=== PATIENT | female | born 1965 | race Two or more races ===

== ENCOUNTER 2024-02-17 09:48 | Outpatient (AMB) | payer MEDICAID, SELFPAY ==
[2024-02-17 10:00] VITALS: BP 184/94; PULSE 81; RESP 18; TEMP 36.3; O2SAT 98; BMI 36.1
--- NOTE | 2024-02-17 10:00 | PD.ORTHCLVIS ---
Vital signs 02/17/24 10:00 Height 1.63 m Height Method Stated Weight 95.424 kg Weight Measurement Method Standing Scale BMI 36.1 BP 184/94 H Blood Pressure Source Automatic Cuff Blood Pressure Location Right Upper Arm Position Sitting Respiration 18 Pulse 81 Pulse Source Monitor Temp 97.3 F Temp Source Temporal Artery Scan Pulse Oximetry (%) 98 Oxygen Delivery Method Room Air Med/Allergies Allergies & Medications Allergies No Known Drug Allergies Allergy (Verified 02/17/24 10:02) Medication Reconciliation No Known Home Medications 02/17/24 [History Confirmed 02/17/24] Subjective Visit Visit for: new patient and knee Immunization / Flu Flu Vaccine in the Last 12 Months: No Flu Vaccine Exclusion Criteria: No Exclusion Criteria History of Present Illness Chief complaint: LEFT KNEE PAIN Date of injury / onset of symptoms: YEARS & YEARS Norma is a 58-year-old female with 4 years of left knee pain. She also has right knee pain. She has had over 6 injections in the past. She has tried anti-inflammatories as well as physical therapy. 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 Exam Exam Patient is in no acute distress and is cooperative with the examination today. Breathing is nonlabored. Patient has a normal mood and affect. Bilateral extremities were evaluated and demonstrates sensation intact to light touch. Palpable pedal pulses are present. No significant edema is present. Bilateral hips were examined. The patient has no pain with log roll of the hips. Internal rotation to 30 degrees and external rotation to 30 degrees is painless. Negative FADIR. Right knee was examined today. The right knee is in reasonable alignment. Range of motion from 0-120 degrees. Knee is stable to varus and valgus as well as AP translation with <5mm. Patient has a negative McMurrays. There is no pain with patellofemoral compression and no crepitus noted. The knee is nontender to palpation. Left knee was examined today. The left knee is in [varus] alignment. Range of motion from [0-115] degrees. Knee is stable to varus and valgus as well as AP translation with <5mm. Patient has a [negative] McMurrays. There is [no] pain with patellofemoral compression and [no] crepitus noted. The knee is [tender] to palpation [medially]. Assessment and Plan Problem List (1) Arthritis of left knee: Status: Acute Plan: Patient is a 58-year-old female with left knee pain and left knee arthritis. She has had multiple injections in the past. She has a degenerative meniscal tear. We discussed that this is typically treated nonoperatively. She does have at least moderate arthritis. We are ordering standing x-rays to better evaluate this. We will do a phone visit to go over the results Office Procedures GNS Level of Care Nursing/Assessment Patient Status: Initial/New Patient Nursing Assessment/Reassesment: Medication Reconciliation, Update PMH in EMR and Vital Signs Coordination of Care: Complex Care and Chronic Disease 1-5, Education Complex Pt/Fam, Consent,records obtained, informed consent, Results/Orders obtained and Staff clarify orders New Patient Charge New Patient Point Assignment: 1094 New Patient Point Charge: VESSEL OPERATOR Level 3 (2165-1921) Past Medical History Past Medical History Have you ever been diagnosed with any of the following: Cardiology Problems Hypertension: Yes Respiratory Problems Smoking: No Smoking Exposure: No
== END 2024-02-17 10:33 | disposition home or self-care (01) ==
PROVIDERS: PCP Family Medicine; Referring Provider Family Medicine; Supervising Provider Orthopaedic Surgery Adult Reconstructive Orthopaedic Surgery; Visit Provider Orthopaedic Surgery Adult Reconstructive Orthopaedic Surgery
DX: M17.12 Unilateral primary osteoarthritis, left knee (principal); M25.562 Pain in left knee; I10 Essential (primary) hypertension
CPT/HCPCS: 99203; G0463

== ENCOUNTER 2024-03-03 15:32 | Outpatient (AMB) | payer MEDICAID, SELFPAY ==
--- NOTE | 2024-03-03 15:30 | ORTHONT_ITS ---
Med/Allergies Allergies & Medications Allergies No Known Drug Allergies Allergy (Verified 03/03/24 15:30) Medication Reconciliation No Known Home Medications 02/17/24 [History Confirmed 03/03/24] Subjective Visit Visit for: knee (BILATERAL KNEE PAIN) Immunization / Flu Flu Vaccine in the Last 12 Months: No Flu Vaccine Exclusion Criteria: No Exclusion Criteria History of Present Illness Chief complaint: LEFT KNEE PAIN Date of injury / onset of symptoms: YEARS & YEARS Norma is a 58-year-old female with 4 years of left knee pain. She also has right knee pain. She has had over 6 injections in the past. She has tried anti-inflammatories as well as physical therapy. She reports the pain is affecting her quality life and happiness. She has a family history of knee issues Personal History Occupation: REGULATORY SPECIALIST Red flag PMH: none Pain Pain level (0-10): 10 Pain duration: CONSTANT Pain location: inside (medial), outside (lateral) and anterior Pain quality: sharp, dull and aching Pain timing: night and increases with activity Associated signs & symptoms: weakness Ambulatory data Ambulatory device: none Treatments Number of previous injections: 3 Improvement with previous injections: No Number of Physical Therapy sessions: 5 Improvement with PT: No Improvement with NSAIDS: no Review of Systems Review of Systems: All systems negative unless otherwise noted in HPI. Assessment and Plan Problem List (1) Arthritis of left knee: Status: Acute Plan: Patient is a 58-year-old female with left knee pain and left knee arthritis. X- rays of the bilateral knees were reviewed by me today from [place] [facility]. This demonstrates a left greater than right knee arthritis. Is complete obliteration of the medial joint space and osteophytes. She has failed conservative treatment and we thus discussed total knee replacement as a reasonable option. The left knee pain is significantly worse than the right And we will thus start on his side. We discussed weight loss and she has made a good attempt to lose weight. She will need medical clearance The nature and purpose of the total knee replacement, alternative method(s) of treatment, the material risks involved, and the possibility of complications were fully explained to the patient. The patient does NOT have any of the following contraindications to TKA: - Active infection of the knee joint, OR - Active systemic bacteremia, OR - Active skin infection or open wound at surgical site, OR - Neuropathic arthritis, OR - Severe, rapidly progressive neurological disease, OR - Severe medical condition that makes risks of surgery outweigh the potential benefit The patient was told the most common risks and complications associated with a total knee replacement include, but are not limited to: blood clots in the leg, fatal pulmonary embolism, dislocation of the prosthesis, intraoperative and postoperative fractures of the femur or tibia, infection, failure of the prosthesis or grafting materials, complications from anesthesia, reactions to blood transfusions, postoperative leg length inequality, instability of the knee replacement, nerve damage or injury, vascular injury, delayed wound healing, infection, other injury or even . In addition, there are risks associated with anesthesia given during this operation. Also, the patient was told that after undergoing a total knee replacement there may still be persistent pain or disability. The patient was informed that the success of this operation in part depends upon the mechanical devices which are going to be implanted and that these devices can fail or malfunction, and may need to be repaired or replaced and there are no guarantees as to the longevity of this device or its parts and that it or its parts could fail prematurely. The patient was also notified that during the course of surgery, there may be a need to use bone graft from donors, and that any bone graft used will be carefully screened for communicable diseases, including AIDS, hepatitis, Salty-Creutzfeldt, or other diseases, but despite the screening procedures, there is a small chance that they could contract one of these diseases. Finally, the patient was asked to follow completely and fully with all advice and recommended treatments, and that recovery and ultimate outcome are affected by their compliance with recommended treatment. We discussed the risks, benefits and treatment alternatives, and the patient is interested in proceeding with surgery. We will try to set this up as expeditiously as possible. Office Procedures GNS Level of Care Nursing/Assessment Patient Status: Established Patient Nursing Assessment/Reassesment: Medication Reconciliation, Update PMH in EMR and Vital Signs Coordination of Care: Complex Care and Chronic Disease 1-5, Education Complex Pt/Fam, Consent,records obtained, informed consent, 1 Ins Authorization, Lab and Imaging orders, Results/Orders obtained and Staff clarify orders Established Patient Charge Established Patient Point Assignment: 125 Telehealth Telemed Phone/Video with patient at home & Dr,PA,NANNY/HOUSEHOLD MANAGER: Yes
== END 2024-03-03 15:43 | disposition home or self-care (01) ==
LOC: HODSRG 15:32
PROVIDERS: PCP Family Medicine; Referring Provider Family Medicine; Supervising Provider Orthopaedic Surgery Adult Reconstructive Orthopaedic Surgery; Visit Provider Orthopaedic Surgery Adult Reconstructive Orthopaedic Surgery
DX: M17.12 Unilateral primary osteoarthritis, left knee (principal); M25.562 Pain in left knee
CPT/HCPCS: 99212; G0463

== ENCOUNTER → 2024-04-24 | Outpatient (CLI) | payer MEDICAID, SELFPAY ==
--- NOTE | 2024-04-24 15:00 | XR_ITS ---
Examination: CT left lower extremity, without contrast. 2-D sagittal reconstructions. 2-D coronal reconstructions. 3-D reconstructions. Date and time of exam:April 24, 2024 1528 hours INDICATIONS: Left knee primary osteoarthritis left knee pain 2 years CTDI: vol (mGy):12.5 DLP: (mGycm):941 Technique: Multiple 1.25 mm axial sections of the left lower extremity without intravenous contrast have been obtained. 2-D sagittal and coronal reconstructions have been obtained. 3-D reconstructions have been obtained. Low dose protocols were performed. One or more of the following dose reduction techniques were used; automated exposure control, adjustment of the mA and/or KV according to patient size, use of iterative reconstruction technique. Findings: Moderate osteopenia Mild narrowing left hip joint, no left hip fracture or avascular necrosis Advanced narrowing medial joint space left knee Moderate narrowing lateral patellofemoral joint No fracture No dislocation No avascular necrosis IMPRESSION: Advanced narrowing/osteoarthritis medial joint space left knee
== END | disposition home or self-care (01) ==
PROVIDERS: PCP Family Medicine; Referring Provider Orthopaedic Surgery Adult Reconstructive Orthopaedic Surgery; Visit Provider Orthopaedic Surgery Adult Reconstructive Orthopaedic Surgery
DX: M17.12 Unilateral primary osteoarthritis, left knee (principal); M25.862 Other specified joint disorders, left knee
CPT/HCPCS: 73700

== ENCOUNTER 2024-05-09 11:19 | Outpatient (AMB) | payer MEDICAID, SELFPAY ==
--- NOTE | 2024-05-09 11:44 | ORTHONT_ITS ---
Vital signs 05/09/24 11:46 Height 1.63 m Height Method Stated Weight 97.125 kg Weight Measurement Method Standing Scale BMI 36.5 BP 172/91 H Blood Pressure Source Automatic Cuff Blood Pressure Location Left Upper Arm Position Sitting Respiration 18 Pulse 80 Pulse Source Monitor Temp 97.3 F Temp Source Temporal Artery Scan Pulse Oximetry (%) 98 Oxygen Delivery Method Room Air Med/Allergies Allergies & Medications Allergies No Known Drug Allergies Allergy (Verified 05/09/24 11:47) Medication Reconciliation No Known Home Medications 02/17/24 [History Confirmed 05/09/24] Exam Exam Patient is in no acute distress and is cooperative with the examination today. Breathing is nonlabored. Patient has a normal mood and affect. Bilateral extremities were evaluated and demonstrates sensation intact to light touch. Palpable pedal pulses are present. No significant edema is present. Bilateral hips were examined. The patient has no pain with log roll of the hips. Internal rotation to 30 degrees and external rotation to 30 degrees is painless. Negative FADIR. Right knee was examined today. The right knee is in reasonable alignment. Range of motion from 0-120 degrees. Knee is stable to varus and valgus as well as AP translation with <5mm. Patient has a negative McMurrays. There is no pain with patellofemoral compression and no crepitus noted. The knee is nontender to palpation. Left knee was examined today. The left knee is in [varus] alignment. Range of motion from [0-115] degrees. Knee is stable to varus and valgus as well as AP translation with <5mm. Patient has a [negative] McMurrays. There is [no] pain with patellofemoral compression and [no] crepitus noted. The knee is [tender] to palpation [medially]. Assessment and Plan Problem List (1) Arthritis of left knee: Status: Acute Plan: Patient is a 58-year-old female with left knee pain and left knee arthritis. X- rays of the bilateral knees were reviewed by me today from [facility]. This demonstrates a left greater than right knee arthritis. Is complete obliteration of the medial joint space and osteophytes. She has failed conservative treatment and we thus discussed total knee replacement as a reasonable option. The left knee pain is significantly worse than the right And we will thus start on his side. We discussed weight loss and she has made a good attempt to lose weight. She will need medical clearance The nature and purpose of the total knee replacement, alternative method(s) of treatment, the material risks involved, and the possibility of complications were fully explained to the patient. The patient does NOT have any of the following contraindications to TKA: - Active infection of the knee joint, OR - Active systemic bacteremia, OR - Active skin infection or open wound at surgical site, OR - Neuropathic arthritis, OR - Severe, rapidly progressive neurological disease, OR - Severe medical condition that makes risks of surgery outweigh the potential benefit The patient was told the most common risks and complications associated with a total knee replacement include, but are not limited to: blood clots in the leg, fatal pulmonary embolism, dislocation of the prosthesis, intraoperative and postoperative fractures of the femur or tibia, infection, failure of the prosthesis or grafting materials, complications from anesthesia, reactions to blood transfusions, postoperative leg length inequality, instability of the knee replacement, nerve damage or injury, vascular injury, delayed wound healing, infection, other injury or even . In addition, there are risks associated with anesthesia given during this operation. Also, the patient was told that after undergoing a total knee replacement there may still be persistent pain or disability. The patient was informed that the success of this operation in part depends upon the mechanical devices which are going to be implanted and that these devices can fail or malfunction, and may need to be repaired or replaced and there are no guarantees as to the longevity of this device or its parts and that it or its parts could fail prematurely. The patient was also notified that during the course of surgery, there may be a need to use bone graft from donors, and that any bone graft used will be carefully screened for communicable diseases, including AIDS, hepatitis, Salty-Creutzfeldt, or other diseases, but despite the screening procedures, there is a small chance that they could contract one of these diseases. Finally, the patient was asked to follow completely and fully with all advice and recommended treatments, and that recovery and ultimate outcome are affected by their compliance with recommended treatment. We discussed the risks, benefits and treatment alternatives, and the patient is interested in proceeding with surgery. We will try to set this up as expeditiously as possible. Office Procedures GNS Level of Care Nursing/Assessment Patient Status: Established Patient Nursing Assessment/Reassesment: Medication Reconciliation, Update PMH in EMR and Vital Signs Coordination of Care: Complex Care and Chronic Disease 1-5, Education Complex Pt/Fam, Consent,records obtained, informed consent, Results/Orders obtained and Staff clarify orders Established Patient Charge Established Patient Point Assignment: 95 Established Patient Point Charge: EP Level 3 (80-115) MA Intake Visit Data Collection New Patient or Established: Established Patient (seen at [facility] within 3 years) Reason for Visit:: PRE OP Seen by Clinical Staff ONLY (RN/MA): No Teradata Developer Required: No PCP or OBGYN visit in last 3 months: Yes Hx Now: No Do You Feel Safe at Home: Yes Authorities Contacted: N/A Questionairres Past Medical History Past Medical History Have you ever been diagnosed with any of the following: Cardiology Problems Hypertension: Yes Respiratory Problems Smoking: No Smoking Exposure: No Subjective Visit Visit for: follow up visit Immunization / Flu Flu Vaccine in the Last 12 Months: No Flu Vaccine Exclusion Criteria: No Exclusion Criteria History of Present Illness Chief complaint: Deb Elise is a 58-year-old female with 4 years of left knee pain. She also has right knee pain. She has had over 6 injections in the past. She has tried anti-inflammatories as well as physical therapy. She reports the pain is affecting her quality life and happiness. She has a family history of knee issues. This is her preop visit and all her questions were answered Pain Pain level (0-10): 6 Pain duration: WTIH MOVEMENT Pain location: inside (medial) and outside (lateral) Pain quality: sharp and aching Pain timing: increases with activity Associated signs & symptoms: none Ambulatory data Ambulatory device: none Treatments Improvement with previous injections: No Improvement with PT: No Improvement with NSAIDS: no Review of Systems Review of Systems: All systems negative unless otherwise noted in HPI.
[2024-05-09 11:46] VITALS: BP 172/91; PULSE 80; RESP 18; TEMP 36.3; O2SAT 98; BMI 36.5
== END 2024-05-09 11:50 | disposition home or self-care (01) ==
LOC: HODSRG 11:19
PROVIDERS: PCP Family Medicine; Referring Provider Family Medicine; Supervising Provider Orthopaedic Surgery Adult Reconstructive Orthopaedic Surgery; Visit Provider Orthopaedic Surgery Adult Reconstructive Orthopaedic Surgery
DX: M17.0 Bilateral primary osteoarthritis of knee (principal); M25.562 Pain in left knee; I10 Essential (primary) hypertension
CPT/HCPCS: 99213; G0463

== ENCOUNTER 2024-06-05 08:30 | Day surgery (SDC) | payer MEDICAID, SELFPAY ==
[2024-06-02 13:51] VITALS: BMI 36.0
[2024-06-02 15:44] LABS: Basophils % (Auto) 0 % (0-2.5); Eosinophils # (Auto) 0.2 Thou/mm3 (0.0-0.5); Eosinophils % (Auto) 2 % (0-10); Hematocrit 35.2 % (36.0-46.0); Hemoglobin 11.7 g/dL (12.0-16.0); Immature Granulocytes % (Auto) 0 % (0-0); Immature Granulocytes Auto 0.03 Thou/mm3 (0.00-0.00); Lymphocytes # (Auto) 3.1 Thou/mm3 (1.0-4.8); Lymphocytes % (Auto) 30 % (10-50); Mean Corpuscular HGB Conc 33.2 g/dl (31.0-37.0); Mean Corpuscular Hemoglobin 28.5 pg (25.0-35.0); Mean Corpuscular Volume 86 fL (80-100); Monocytes # (Auto) 0.9 Thou/mm3 (0.0-0.8); Monocytes % (Auto) 9 % (0-12); Neutrophils # (Auto) 6.1 Thou/mm3 (1.8-7.7); Neutrophils % (Auto) 59 % (37-80); Nucleated Red Blood Cell % 0 /100 WBC (0); Platelet Count 345 Thou/mm3 (140-440); RDW Standard Deviation 43.4 fL (36.4-46.3); White Blood Count 10.3 Thou/mm3 (3.6-11.0)
[2024-06-02 15:56] LABS: Alanine Aminotransferase 18 U/L (10-49); Albumin, Serum 4.1 gm/dL (3.5-5.0); Albumin/Globulin Ratio 1.7 (1.2-2.2); Alkaline Phosphatase 97 U/L (46-116); Anion Gap 10 (7-16); Aspartate Amino Transferase 15 U/L (0-34); BUN/Creatinine Ratio 20 Ratio (12-20); Bilirubin,Total 0.3 mg/dL (0.3-1.2); Blood Urea Nitrogen 20 mg/dL (9-23); Calcium 9.5 mg/dL (8.3-10.6); Calcium (Corrected) 9.5 mg/dL (8.5-10.1); Carbon Dioxide 25.4 mMol/L (20.0-31.0); Chloride 107 mMol/L (98-107); Estimated Creatinine Clearance 68.7 mL/min (>60); Globulin 2.4 gm/dL (2.3-3.5); Glucose 94 mg/dL (74-106); Osmolality,Calculated 285 (275-295); Sodium 142 mMol/L (136-145); Total Protein 6.5 gm/dL (5.7-8.2); eGFR > 60 See Note
[2024-06-02 15:58] LABS: Partial Thromboplastin Time 24.5 Seconds (22.0-36.0); Prothrombin Time 10.5 Seconds (9.0-12.2)
[2024-06-05] VITALS (12 sets, daily range): BP systolic 115–156; BP diastolic 64–91; PULSE 78–89; RESP 13–20; TEMP 36.2–36.6; O2SAT 95–99; BMI 35.7; BMI 13.0
[2024-06-05] MEDS: ACETAMINOPHEN 325 MG TABLET 650 MG PO (09:17)
[2024-06-05] MEDS: MELOXICAM 7.5 MG TABLET PO (09:18)
[2024-06-05] MEDS: RINGERS LACTATED 1000 ML 1,000 ML 20 ML IV (09:18)
[2024-06-05] MEDS: PREGABALIN 75 MG CAPSULE PO (09:18)
--- NOTE | 2024-06-05 09:20 | CHAP ---
Patient expressed gratitude for prayer before their procedure.
--- NOTE | 2024-06-05 13:15 | ESOP_ITS ---
Date of Procedure 06/05/24 Pre Op Diagnosis left knee osteoarthritis Post Op Diagnosis left knee osteoarthritis Procedure left total knee replacement makop Findings full thickness cartilage loss and osteophytes Procedure Description Indication: The patient is a [59 year old who has a long history of left knee pain. X-rays show degenerative arthritis involving the knee. Over the past several years the patient has had increasing pain, progressive limitation in function. He has failed conservative measures including activity modification, physical therapy, injections, anti-inflammatories, and assistive devices. After a lengthy discussion of the risks and benefits, the patient presents now for total knee replacement. The nature and purpose of the total knee replacement, alternative method(s) of treatment, the material risks involved, and the possibility of complications were fully explained to the patient. The patient was told the most common risks and complications associated with a total knee replacement include, but are not limited to blood clots in the leg, fatal pulmonary embolism, dislocation of the prosthesis, intraoperative and postoperative fractures of the femur or tibia, infection, failure of the prosthesis or grafting materials, complications from anesthesia, reactions to blood transfusions, postoperative leg length inequality, instability of the knee replacement, nerve damage or injury, vascular injury, delayed wound healing, infections, other injury or even . In addition, there are risks associated with anesthesia given during this operation, temporary or permanent numbness on the skin lateral to the incision can be a complication unique to total knee surgery, and kneeling can be painful after knee replacement surgery. Also, the patient was told that after undergoing a total knee replacement there may still be pain or disability. We discussed with the patient that we will be using a robot-assisted technology. We discussed that there is a possibility of converting to manual instrumentation. The patient was informed that the success of this operation in part depends upon the mechanical devices which are going to be implanted and that these devices can fail or malfunction, and may need to be repaired or replaced and there are no guarantees as to the longevity of this device or its part and that it or its parts could fail prematurely. Finally, the patient was asked to follow completely and fully with all advice and recommended treatments, and that recovery and ultimate outcome are affected by their compliance with recommended treatment. Surgical technique: Patient was marked and consented in the pre-operative area. The patient was brought to the operating room and placed on the operating table in a supine position. Prior to positioning, a timeout procedure was performed between the surgeon, the anesthesiologist, and the nursing staff where the patient and the operative side were identified and confirmed. After adequate general anesthetic was obtained, the left lower extremity was prepped and draped in the usual sterile fashion. A weight based dose of Cefazolin were administered within 1 hour prior to incision. The robot was preregistered and calirated before the incision. The extremity was exsanguinated with an esmarch badge and tourniquet inflated to 250mmHg. A midline incision was made. A median parapatellar arthrotomy was made. The patella was subluxed laterally. A medial release was performed to expose the medial tibia. His femoral and tibial pins were placed through an intra incisional manner for both cases. Every effort was made to ensure that the distalmost aspect of the pin was hung in the second cortex. The arrays were then tightened several times to ensure that it was fixed for the remainder of the case. Both femoral and tibial checkpoints were then placed. We then went through the registration process of the bone. We then assessed the knee deformity and attempted to correct it. We also used the robot to aid in judging laxity in both extension and flexion. Final based on laxity and alignment we changed the preoperative assessment to obtain proper proper implant positioning and to correct deformity. Attention was then placed to the tibia. We made a tibial cut using the robot ensuring that both the MCL and the patella tendon were protected with retractors. We then went to the femur and made the posterior cut followed by the anterior cut and the anterior chamfer. The bone was then removed and we made a distal femur cut and a posterior chamfer cut. We verified all cuts. A trial reduction was performed with a size 2 femoral component and a size 2 keeled tibial component. The patella tracked centrally, and no lateral retinacular release was necessary. The trial implants were removed. The arrays, pins, and checkpoints were all removed. We performed a verification that all pins were removed. The cut bone surfaces were lavaged. A size 2 left femoral component, a size 2 keeled tibial component were impacted into position. The knee was felt to be well balanced in the sagittal and coronal plane. The final 2x10 mm cruciate- substituting articular insert was impacted into the tibial tray. The knee was brought out to full extension, flexed up to 120 degrees. It was stable to varus and valgus stress and appropriately balanced in flexion and extension. The wounds were copiously irrigated following deflation of tourniquet. The medial retinaculum was reapproximated with #1 vicryl and quill. The subcutaneous tissues were closed with 0 and 2-0 interrupted Vicryl. The skin was closed with 3-0 Monofilament V loc suture. A sterile dressing was applied. The patient was transferred to a bed and brought to recovery in stable condition. The patient tolerated the procedure well. There were no intraoperative complications. Sponge and needle counts were correct times 2. As the attending surgeon, I attest I was present and performed the entire operation. Grafts/Implants Size 2 CR Femur Size 2 Tibia 10mm poly CS Anesthesia GETA Implants bhaskar Pathology / specimen None Pathology comment: none Estimated Blood Loss 150 Condition Stable Disposition same day Surgeon Josue Anaya MD Surgical Staff Operation Date: 06/05/24 12:30 Case Staff Anesthesiologist: Austin Wilson RN First Assistant: Jazmin Vu
--- NOTE | 2024-06-05 13:17 | SUR.PHASEI ---
pt arrived to PACU via gurney, breathing unlabored, dressing to left lower extremity clean, dry, and intact, report from Paul LUCAS, and Dr Wilson
--- NOTE | 2024-06-05 13:17 | XR_ITS ---
Examination: Left knee 2 views Technique one AP lateral left knee 2 views Exam date and time: June 05, 2024 at 1411 hrs. Indications: Postop knee replacement today. Findings: Total left knee arthroplasty. Satisfactory alignment. No fracture Impression: Total left knee arthroplasty with satisfactory alignment
[2024-06-05] MEDS: HYDROmorphone INJ 2 MG/ML VIAL 0.4 MG IV ×3 (13:40→14:50)
--- NOTE | 2024-06-05 13:40 | SUR.PHASEI ---
Report to Bernardo LUCAS
[2024-06-05] MEDS: ACETAMINOPHEN IVPB 1,000 MG/100 ML VIAL 250 MG IV (13:46)
[2024-06-05] MEDS: CYCLObenzaPRINE 5 MG TABLET 10 MG PO (13:58)
--- NOTE | 2024-06-05 13:58 | SUR.PHASEII ---
pt able to tolerate oral fluids without difficulty swallowing or nausea/vomiting.
[2024-06-05] MEDS: oxyCODONE HCL 5 MG IR TAB PO (14:00)
[2024-06-05] MEDS: fentaNYL CIT INJ 50 mCg/ML AMP 2ML 25 MCG IV ×2 (14:19→15:19)
--- NOTE | 2024-06-05 15:50 | SUR.PHASEII ---
pt awake and alert, breathing unlabored on room air. v/s stable. pt dressing to left lower extremity cdi. pt able to ambulate to wheelchair with steady gait. pt cleared by physical therapist Josephine. d/c instructions given with daughter in room, all questions answered. pt d/c via wheelchair with all belongings.
== END 2024-06-05 15:50 | disposition home or self-care (01) ==
PROVIDERS: Anesthesiology; PCP Family Medicine; Referring Provider Orthopaedic Surgery Adult Reconstructive Orthopaedic Surgery; Visit Provider Orthopaedic Surgery Adult Reconstructive Orthopaedic Surgery
PROC: (CPT 27447; principal; 2024-06-05 12:30)
DX: M17.12 Unilateral primary osteoarthritis, left knee (principal); M25.762 Osteophyte, left knee
CPT/HCPCS: 27447; 20985; 36415; 73560; 80053; 85025; 85610; 85730; 97162; A4217; C1713; C1776; J0131; J0690; J1100; J1885; J2250; J2371; J2405; J2704; J2795; J3010; J3490; J7030; J7120; J7999; A4648; A4649; A9270

== ENCOUNTER 2024-06-22 10:17 | Outpatient (AMB) | payer MEDICAID, SELFPAY ==
[2024-06-22 10:28] VITALS: BP 155/84; PULSE 80; RESP 18; TEMP 36.1; O2SAT 97; BMI 35.2
--- NOTE | 2024-06-22 10:28 | ORTHONT_ITS ---
Vital signs 06/22/24 10:28 Height 1.65 m Height Method Stated Weight 95.963 kg Weight Measurement Method Standing Scale BMI 35.2 BP 155/84 H Blood Pressure Source Automatic Cuff Blood Pressure Location Right Upper Arm Position Sitting Respiration 18 Pulse 80 Pulse Source Monitor Temp 96.9 F Temp Source Temporal Artery Scan Pulse Oximetry (%) 97 Oxygen Delivery Method Room Air Med/Allergies Allergies & Medications Allergies No Known Drug Allergies Allergy (Verified 06/22/24 10:29) Medication Reconciliation losartan 100 mg-hydrochlorothiazide 25 mg tablet 1 tab PO DAILY 06/02/24 [Hi story Confirmed 06/22/24] metoprolol succinate 50 mg tablet,extended release 24 hr 50 mg PO DAILY 06/02/24 [History Confirmed 06/22/24] acetaminophen 500 mg tablet (Acetaminophen Extra Strength) 1,000 mg (2 x 500 mg) PO Q6H PRN pain #90 tabs 06/05/24 [Rx Confirmed 06/22/24] aspirin 81 mg tablet,delayed release 81 mg PO BID #60 tabs 06/05/24 [Rx Confirmed 06/22/24] doxycycline hyclate 100 mg tablet 100 mg PO BID #14 tabs 06/05/24 [Rx Confirmed 06/22/24] gabapentin 300 mg capsule 300 mg PO .qhs #30 caps 06/05/24 [Rx Confirmed 06/22/24] oxycodone 5 mg tablet 5 mg PO Q6H PRN pain #28 tabs 06/05/24 [Rx Confirmed 06/22/24] sennosides 8.6 mg-docusate sodium 50 mg tablet (Senna-S) 1 tab-cap PO QDAY #30 tabs 06/05/24 [Rx Confirmed 06/22/24] cyclobenzaprine 5 mg tablet 5 mg PO TID PRN muscle spasm #60 tabs 06/22/24 [Rx] tramadol 50 mg tablet 50 mg PO Q6H PRN pain #28 tabs 06/22/24 [Rx] Exam Exam Patient is in no acute distress and is cooperative with the examination today. Breathing is nonlabored. Patient has a normal mood and affect. Bilateral extremities were evaluated and demonstrates sensation intact to light touch. Palpable pedal pulses are present. No significant edema is present. Bilateral hips were examined. The patient has no pain with log roll of the hips. Internal rotation to 30 degrees and external rotation to 30 degrees is painless. Negative FADIR. Right knee was examined today. The right knee is in reasonable alignment. Range of motion from 0-120 degrees. Knee is stable to varus and valgus as well as AP translation with <5mm. Patient has a negative McMurrays. There is no pain with patellofemoral compression and no crepitus noted. The knee is nontender to palpation. Left knee incision is clean dry intact. Assessment and Plan Problem List (1) Arthritis of left knee: Status: Acute Plan: Patient is a 58-year-old female with left knee pain and left knee arthritis. She is doing well status post left total knee replacement. She is working with therapy. Office Procedures GNS Level of Care Nursing/Assessment Patient Status: Established Patient Nursing Assessment/Reassesment: Medication Reconciliation, Update PMH in EMR and Vital Signs Coordination of Care: Complex Care and Chronic Disease 1-5, Education Complex Pt/Fam, Consent,records obtained, informed consent, Results/Orders obtained and Staff clarify orders Established Patient Charge Established Patient Point Assignment: 95 Established Patient Point Charge: EP Level 3 (80-115) MA Intake Visit Data Collection New Patient or Established: Established Patient (seen at [facility] within 3 years) Reason for Visit:: 2 WEEK POST OP Seen by Clinical Staff ONLY (RN/MA): No Verbal consent obtained for Telemed visit?: No Cardroom Manager Required: No PCP or OBGYN visit in last 3 months: Yes Hx Now: No Do You Feel Safe at Home: Yes Authorities Contacted: N/A Questionairres Past Medical History Past Medical History Have you ever been diagnosed with any of the following: Neurological Problems Seizures: No Cardiology Problems Congestive Heart Failure: No Hypertension: Yes Varicose Veins: Yes Respiratory Problems Chronic Obstructive Pulmonary Disease (COPD): No Asthma: Yes Bronchitis: Yes Smoking: No Smoking Exposure: No Stomache/Intestinal Problems Hepatitis: No Obesity: Yes Genital/Urinary Problems Renal Disease: No Reproductive Problems Previous Pregnancies: Yes (4) Musculoskeletal Problems Arthritis: Yes Endocrine Problems Diabetes Mellitus Type 1: No Diabetes Mellitus Type 2: No Blood Problems Anemia: Yes Other Problems Hospitalization: Yes (surgery) Shingles: No Blood Transfusions: No Blood Transfusion Reaction: No Anesthesia Reactions: No Chicken Pox: Yes Cancer: No Subjective Visit Visit for: follow up visit, post op #1 and knee Immunization / Flu Flu Vaccine in the Last 12 Months: No Flu Vaccine Exclusion Criteria: No Exclusion Criteria History of Present Illness Chief complaint: 2 WEEK POST OP Date of injury / onset of symptoms: 06/02/2024 Patient is a pleasant 59-year-old female status post left total knee replacement. She is doing well. Personal History Occupation: unemployed Red flag PMH: BMI BMI Counceling provided: Yes Pain Pain level (0-10): 10 Pain duration: all day Pain location: inside (medial), outside (lateral) and anterior Pain quality: sharp, dull and aching Pain timing: night, increases with activity and stairs Associated signs & symptoms: numbness Ambulatory data Ambulatory device: walker Treatments Improvement with previous injections: No Improvement with PT: No Improvement with NSAIDS: no Review of Systems Review of Systems: All systems negative unless otherwise noted in HPI.
== END 2024-06-22 10:49 | disposition home or self-care (01) ==
LOC: HODSRG 10:17
PROVIDERS: PCP Family Medicine; Referring Provider Family Medicine; Supervising Provider Orthopaedic Surgery Adult Reconstructive Orthopaedic Surgery; Visit Provider Orthopaedic Surgery Adult Reconstructive Orthopaedic Surgery
DX: M17.12 Unilateral primary osteoarthritis, left knee (principal); Z96.652 Presence of left artificial knee joint; I10 Essential (primary) hypertension; J45.909 Unspecified asthma, uncomplicated
CPT/HCPCS: 99213; G0463

== ENCOUNTER 2024-07-20 09:32 | Outpatient (AMB) | payer MEDICAID, SELFPAY ==
[2024-07-20 10:07] VITALS: BP 146/88; PULSE 82; RESP 17; TEMP 36.8; O2SAT 96; BMI 36.5
--- NOTE | 2024-07-20 10:07 | PD.ORTHCLVIS ---
Vital signs 07/20/24 10:07 Height 1.65 m Height Method Stated Weight 99.45 kg Weight Measurement Method Standing Scale BMI 36.5 BP 146/88 H Blood Pressure Source Automatic Cuff Blood Pressure Location Right Upper Arm Position Sitting Respiration 17 Pulse 82 Pulse Source Monitor Temp 98.3 F Temp Source Temporal Artery Scan Pulse Oximetry (%) 96 Oxygen Delivery Method Room Air Med/Allergies Allergies & Medications Allergies No Known Drug Allergies Allergy (Verified 07/20/24 10:08) Medication Reconciliation losartan 100 mg-hydrochlorothiazide 25 mg tablet 1 tab PO DAILY 06/02/24 [History Confirmed 07/20/24] metoprolol succinate 50 mg tablet,extended release 24 hr 50 mg PO DAILY 06/02/24 [History Confirmed 07/20/24] acetaminophen 500 mg tablet (Acetaminophen Extra Strength) 1,000 mg (2 x 500 mg) PO Q6H PRN pain #90 tabs 06/05/24 [Rx Confirmed 07/20/24] aspirin 81 mg tablet,delayed release 81 mg PO BID #60 tabs 06/05/24 [Rx Confirmed 07/20/24] doxycycline hyclate 100 mg tablet 100 mg PO BID #14 tabs 06/05/24 [Rx Confirmed 07/20/24] gabapentin 300 mg capsule 300 mg PO .qhs #30 caps 06/05/24 [Rx Confirmed 07/20/24] oxycodone 5 mg tablet 5 mg PO Q6H PRN pain #28 tabs 06/05/24 [Rx Confirmed 07/20/24] sennosides 8.6 mg-docusate sodium 50 mg tablet (Senna-S) 1 tab-cap PO QDAY #30 tabs 06/05/24 [Rx Confirmed 07/20/24] cyclobenzaprine 5 mg tablet 5 mg PO TID PRN muscle spasm #60 tabs 06/22/24 [Rx Confirmed 07/20/24] tramadol 50 mg tablet 50 mg PO Q6H PRN pain #28 tabs 06/22/24 [Rx Confirmed 07/20/24] hydrocodone 5 mg-acetaminophen 300 mg tablet 1 tab PO Q6H PRN pain #28 tabs 07/20/24 [Rx] Exam Exam Patient is in no acute distress and is cooperative with the examination today. Breathing is nonlabored. Patient has a normal mood and affect. Bilateral extremities were evaluated and demonstrates sensation intact to light touch. Palpable pedal pulses are present. No significant edema is present. Bilateral hips were examined. The patient has no pain with log roll of the hips. Internal rotation to 30 degrees and external rotation to 30 degrees is painless. Negative FADIR. Right knee was examined today. The right knee is in reasonable alignment. Range of motion from 0-120 degrees. Knee is stable to varus and valgus as well as AP translation with <5mm. Patient has a negative McMurrays. There is no pain with patellofemoral compression and no crepitus noted. The knee is nontender to palpation. Left knee incision is clean dry intact. Assessment and Plan Problem List (1) Arthritis of left knee: Status: Acute Plan: Patient is a 58-year-old female with left knee pain and left knee arthritis. She is doing well status post left total knee replacement. She should start with pt. Office Procedures GNS Level of Care Nursing/Assessment Patient Status: Established Patient Nursing Assessment/Reassesment: Medication Reconciliation, Update PMH in EMR and Vital Signs Coordination of Care: Complex Care and Chronic Disease 1-5, Consent,records obtained, informed consent, Education Simp Pt/Fam, Results/Orders obtained and Staff clarify orders Established Patient Charge Established Patient Point Assignment: 90 Established Patient Point Charge: EP Level 3 (80-115) MA Intake Visit Data Collection New Patient or Established: Established Patient (seen at [facility] within 3 years) Reason for Visit:: FU 6 WK POST OP TKA-MEDICATION REFILL-PAIN MEDICATION Seen by Clinical Staff ONLY (RN/MA): No Accounts Receivable Accountant Required: No PCP or OBGYN visit in last 3 months: Yes Hx Now: No Do You Feel Safe at Home: Yes Authorities Contacted: N/A Questionairres Past Medical History Past Medical History Have you ever been diagnosed with any of the following: Neurological Problems Seizures: No Cardiology Problems Congestive Heart Failure: No Hypertension: Yes Varicose Veins: Yes Respiratory Problems Chronic Obstructive Pulmonary Disease (COPD): No Asthma: Yes Bronchitis: Yes Smoking: No Smoking Cessation Counseling: No Smoking Exposure: No Stomache/Intestinal Problems Hepatitis: No Obesity: Yes Genital/Urinary Problems Renal Disease: No Reproductive Problems Previous Pregnancies: Yes (4) Musculoskeletal Problems Arthritis: Yes Endocrine Problems Diabetes Mellitus Type 1: No Diabetes Mellitus Type 2: No Blood Problems Anemia: Yes Other Problems Hospitalization: Yes (surgery) Shingles: No Blood Transfusions: No Blood Transfusion Reaction: No Anesthesia Reactions: No Chicken Pox: Yes Cancer: No Subjective Visit Visit for: follow up visit and post op #2 (6 WK POST OP TKA) Immunization / Flu Flu Vaccine in the Last 12 Months: No Flu Vaccine Exclusion Criteria: Refused by Patient History of Present Illness Chief complaint: 6 WEEK POST OP Date of injury / onset of symptoms: 06/02/2024 Patient is a pleasant 59-year-old female status post left total knee replacement. She is doing well. She has been delayed to start PT because of insurance Personal History Occupation: unemployed Red flag PMH: none BMI Counceling provided: Yes Pain Pain level (0-10): 6 Pain duration: 1 MONTH Pain location: anterior Pain quality: sharp and aching Pain timing: increases with activity Associated signs & symptoms: stiffness Ambulatory data Ambulatory device: walker Walking distance (minutes): 10 Treatments Number of previous injections: 3 Improvement with previous injections: No Number of Physical Therapy sessions: 6 Improvement with PT: No Improvement with NSAIDS: n/a Review of Systems Review of Systems: All systems negative unless otherwise noted in HPI.
== END 2024-07-20 10:24 | disposition home or self-care (01) ==
LOC: HODSRG 09:32
PROVIDERS: PCP Family Medicine; Referring Provider Family Medicine; Supervising Provider Orthopaedic Surgery Adult Reconstructive Orthopaedic Surgery; Visit Provider Orthopaedic Surgery Adult Reconstructive Orthopaedic Surgery
DX: M17.12 Unilateral primary osteoarthritis, left knee (principal); M25.562 Pain in left knee; Z96.652 Presence of left artificial knee joint; I10 Essential (primary) hypertension
CPT/HCPCS: 99213; G0463

== ENCOUNTER 2024-08-31 11:05 | Outpatient (AMB) | payer MEDICAID, SELFPAY ==
[2024-08-31 11:16] VITALS: BP 169/94; PULSE 89; RESP 17; TEMP 36.6; O2SAT 95; BMI 35.9
--- NOTE | 2024-08-31 11:16 | ORTHONT_ITS ---
Vital signs 08/31/24 11:16 Height 1.65 m Height Method Stated Weight 97.636 kg Weight Measurement Method Standing Scale BMI 35.9 BP 169/94 H Blood Pressure Source Automatic Cuff Blood Pressure Location Right Upper Arm Position Sitting Respiration 17 Pulse 89 Pulse Source Monitor Temp 97.8 F Temp Source Temporal Artery Scan Pulse Oximetry (%) 95 Oxygen Delivery Method Room Air Med/Allergies Allergies & Medications Allergies No Known Drug Allergies Allergy (Verified 08/31/24 11:17) Medication Reconciliation losartan 100 mg-hydrochlorothiazide 25 mg tablet 1 tab PO DAILY 06/02/24 [Hi story Confirmed 08/31/24] metoprolol succinate 50 mg tablet,extended release 24 hr 50 mg PO DAILY 06/02/24 [History Confirmed 08/31/24] acetaminophen 500 mg tablet (Acetaminophen Extra Strength) 1,000 mg (2 x 500 mg) PO Q6H PRN pain #90 tabs 06/05/24 [Rx Confirmed 08/31/24] aspirin 81 mg tablet,delayed release 81 mg PO BID #60 tabs 06/05/24 [Rx Confirmed 08/31/24] doxycycline hyclate 100 mg tablet 100 mg PO BID #14 tabs 06/05/24 [Rx Confirmed 08/31/24] gabapentin 300 mg capsule 300 mg PO .qhs #30 caps 06/05/24 [Rx Confirmed 08/31/24] sennosides 8.6 mg-docusate sodium 50 mg tablet (Senna-S) 1 tab-cap PO QDAY #30 tabs 06/05/24 [Rx Confirmed 08/31/24] cyclobenzaprine 5 mg tablet 5 mg PO TID PRN muscle spasm #60 tabs 06/22/24 [Rx Confirmed 08/31/24] tramadol 50 mg tablet 50 mg PO Q6H PRN pain #28 tabs 06/22/24 [Rx Confirmed 08/31/24] oxycodone 5 mg tablet 5 mg PO Q6H PRN pain #28 tabs 08/24/24 [Rx Confirmed 08/31/24] hydrocodone 7.5 mg-acetaminophen 325 mg tablet 1 tab PO QHS PRN pain #21 tabs 08/31/24 [Rx] Exam Exam Patient is in no acute distress and is cooperative with the examination today. Breathing is nonlabored. Patient has a normal mood and affect. Bilateral extremities were evaluated and demonstrates sensation intact to light touch. Palpable pedal pulses are present. No significant edema is present. Bilateral hips were examined. The patient has no pain with log roll of the hips. Internal rotation to 30 degrees and external rotation to 30 degrees is painless. Negative FADIR. Right knee was examined today. The right knee is in reasonable alignment. Range of motion from 0-120 degrees. Knee is stable to varus and valgus as well as AP translation with <5mm. Patient has a negative McMurrays. There is no pain with patellofemoral compression and no crepitus noted. The knee is nontender to palpation. Left knee incision is clean dry intact. ROM is 0-100 degrees Assessment and Plan Problem List (1) Arthritis of left knee: Status: Acute Plan: Patient is a 58-year-old female with left knee pain and left knee arthritis. She is doing well status post left total knee replacement. She just started physical therapy at this point. She is doing well. Office Procedures GNS Level of Care Nursing/Assessment Patient Status: Established Patient Nursing Assessment/Reassesment: Medication Reconciliation, Update PMH in EMR and Vital Signs Coordination of Care: Complex Care and Chronic Disease 1-5, Consent,records obtained, informed consent, Education Simp Pt/Fam, Results/Orders obtained and Staff clarify orders Established Patient Charge Established Patient Point Assignment: 90 Established Patient Point Charge: EP Level 3 (80-115) MA Intake Visit Data Collection New Patient or Established: Established Patient (seen at [facility] within 3 years) Reason for Visit:: 6 WK POST OP TKA LEFT KNEE Seen by Clinical Staff ONLY (RN/MA): No Assistant Sales Manager Required: No PCP or OBGYN visit in last 3 months: Yes Hx Now: No Do You Feel Safe at Home: Yes Authorities Contacted: N/A Questionairres Past Medical History Past Medical History Have you ever been diagnosed with any of the following: Neurological Problems Seizures: No Cardiology Problems Congestive Heart Failure: No Hypertension: Yes Varicose Veins: Yes Respiratory Problems Chronic Obstructive Pulmonary Disease (COPD): No Asthma: Yes Bronchitis: Yes Smoking: No Smoking Cessation Counseling: No Smoking Exposure: No Stomache/Intestinal Problems Hepatitis: No Obesity: Yes Genital/Urinary Problems Renal Disease: No Reproductive Problems Previous Pregnancies: Yes (4) Musculoskeletal Problems Arthritis: Yes Endocrine Problems Diabetes Mellitus Type 1: No Diabetes Mellitus Type 2: No Blood Problems Anemia: Yes Other Problems Hospitalization: Yes (surgery) Shingles: No Blood Transfusions: No Blood Transfusion Reaction: No Anesthesia Reactions: No Chicken Pox: Yes Cancer: No Subjective Visit Visit for: follow up visit, post op #3 (6 WK POST OP ) and knee (LEFT KNEE ) Immunization / Flu Flu Vaccine in the Last 12 Months: No Flu Vaccine Exclusion Criteria: Refused by Patient History of Present Illness Chief complaint: 6 WEEK POST OP Date of injury / onset of symptoms: 06/02/2024 Patient is a pleasant 59-year-old female status post left total knee replacement. She is doing well. She has been delayed to start PT because of insurance. Personal History Occupation: unemployed Red flag PMH: none BMI Counceling provided: Yes Pain Pain level (0-10): 7 Pain duration: SINCE SURGERY Pain location: anterior and posterior Pain quality: sharp Pain timing: increases with activity Associated signs & symptoms: stiffness Ambulatory data Ambulatory device: cane Walking distance (minutes): 60 Treatments Number of previous injections: 1 Improvement with previous injections: No Number of Physical Therapy sessions: 1 Improvement with PT: Yes Improvement with NSAIDS: n/a Review of Systems Review of Systems: All systems negative unless otherwise noted in HPI.
== END 2024-08-31 11:26 | disposition home or self-care (01) ==
LOC: HODSRG 11:05
PROVIDERS: PCP Family Medicine; Referring Provider Family Medicine; Supervising Provider Orthopaedic Surgery Adult Reconstructive Orthopaedic Surgery; Visit Provider Orthopaedic Surgery Adult Reconstructive Orthopaedic Surgery
DX: M17.12 Unilateral primary osteoarthritis, left knee (principal); M25.562 Pain in left knee; I10 Essential (primary) hypertension
CPT/HCPCS: 99213; G0463

== ENCOUNTER 2024-10-11 14:40 | Outpatient (AMB) | payer MEDICAID, SELFPAY ==
--- NOTE | 2024-10-11 14:48 | XR_ITS ---
Examination: Bilateral AP knees single view PA lateral axial left knee 3 views TECHNIQUE: Bilateral AP knees standing single view Left knee standing flexion PA knees, standing lateral knee, axial left knee 3 views total 4 views Date and time: October 11, 2024 1458 hours INDICATIONS: Knee replacement 4 months ago. FINDINGS: Moderate osteopenia Moderate to advanced narrowing medial joint space right knee Total left knee arthroplasty. Satisfactory alignment. No patellar dislocation. No loosening of the prosthetic components IMPRESSION: Total left knee arthroplasty with satisfactory alignment
--- NOTE | 2024-10-11 14:49 | ORTHONT_ITS ---
Vital signs 10/11/24 14:54 Height 1.65 m Height Method Stated Weight 100.244 kg Weight Measurement Method Standing Scale BMI 36.8 BP 174/87 H Blood Pressure Source Automatic Cuff Blood Pressure Location Left Upper Arm Position Sitting Respiration 19 Pulse 82 Pulse Source Monitor Temp 98.4 F Temp Source Temporal Artery Scan Pulse Oximetry (%) 97 Oxygen Delivery Method Room Air Med/Allergies Allergies & Medications Allergies No Known Drug Allergies Allergy (Verified 10/11/24 14:54) Medication Reconciliation losartan 100 mg-hydrochlorothiazide 25 mg tablet 1 tab PO DAILY 06/02/24 [Hi story Confirmed 10/11/24] metoprolol succinate 50 mg tablet,extended release 24 hr 50 mg PO DAILY 06/02/24 [History Confirmed 10/11/24] acetaminophen 500 mg tablet (Acetaminophen Extra Strength) 1,000 mg (2 x 500 mg) PO Q6H PRN pain #90 tabs 06/05/24 [Rx Confirmed 10/11/24] aspirin 81 mg tablet,delayed release 81 mg PO BID #60 tabs 06/05/24 [Rx Confirmed 10/11/24] doxycycline hyclate 100 mg tablet 100 mg PO BID #14 tabs 06/05/24 [Rx Confirmed 10/11/24] gabapentin 300 mg capsule 300 mg PO .qhs #30 caps 06/05/24 [Rx Confirmed 10/11/24] sennosides 8.6 mg-docusate sodium 50 mg tablet (Senna-S) 1 tab-cap PO QDAY #30 tabs 06/05/24 [Rx Confirmed 10/11/24] cyclobenzaprine 5 mg tablet 5 mg PO TID PRN muscle spasm #60 tabs 06/22/24 [Rx Confirmed 10/11/24] tramadol 50 mg tablet 50 mg PO Q6H PRN pain #28 tabs 06/22/24 [Rx Confirmed 10/11/24] oxycodone 5 mg tablet 5 mg PO Q6H PRN pain #28 tabs 08/24/24 [Rx Confirmed 10/11/24] hydrocodone 7.5 mg-acetaminophen 325 mg tablet 1 tab PO QHS PRN pain #21 tabs 08/31/24 [Rx Confirmed 10/11/24] Exam Exam Patient is in no acute distress and is cooperative with the examination today. Breathing is nonlabored. Patient has a normal mood and affect. Bilateral extremities were evaluated and demonstrates sensation intact to light touch. Palpable pedal pulses are present. No significant edema is present. Bilateral hips were examined. The patient has no pain with log roll of the hips. Internal rotation to 30 degrees and external rotation to 30 degrees is painless. Negative FADIR. Right knee was examined today. The right knee is in reasonable alignment. Range of motion from 0-120 degrees. Knee is stable to varus and valgus as well as AP translation with <5mm. Patient has a negative McMurrays. There is no pain with patellofemoral compression and no crepitus noted. The knee is nontender to palpation. Left knee incision is clean dry intact. ROM is 0-100 degrees Assessment and Plan Problem List (1) Arthritis of left knee: Status: Acute Plan: Patient is a 58-year-old female with left knee pain and left knee arthritis. She is doing well status post left total knee replacement. She is doing well. We will see her approximate 3 to 4 months with routine follow-up. We will get x-rays as well Office Procedures GNS Level of Care Nursing/Assessment Patient Status: Established Patient Nursing Assessment/Reassesment: Medication Reconciliation, Update PMH in EMR and Vital Signs Coordination of Care: Complex Care and Chronic Disease 1-5, Education Complex Pt/Fam, Consent,records obtained, informed consent, Results/Orders obtained and Staff clarify orders Established Patient Charge Established Patient Point Assignment: 95 Established Patient Point Charge: EP Level 3 (80-115) MA Intake Visit Data Collection New Patient or Established: Established Patient (seen at [facility] within 3 years) Reason for Visit:: REQ DISABILITY Seen by Clinical Staff ONLY (RN/MA): No PCP or OBGYN visit in last 3 months: Yes Hx Now: No Do You Feel Safe at Home: Yes Authorities Contacted: N/A Questionairres Past Medical History Past Medical History Have you ever been diagnosed with any of the following: Neurological Problems Seizures: No Cardiology Problems Congestive Heart Failure: No Hypertension: Yes Varicose Veins: Yes Respiratory Problems Chronic Obstructive Pulmonary Disease (COPD): No Asthma: Yes Bronchitis: Yes Smoking: No Smoking Cessation Counseling: No Smoking Exposure: No Stomache/Intestinal Problems Hepatitis: No Obesity: Yes Genital/Urinary Problems Renal Disease: No Reproductive Problems Previous Pregnancies: Yes (4) Musculoskeletal Problems Arthritis: Yes Endocrine Problems Diabetes Mellitus Type 1: No Diabetes Mellitus Type 2: No Blood Problems Anemia: Yes Other Problems Hospitalization: Yes (surgery) Shingles: No Blood Transfusions: No Blood Transfusion Reaction: No Anesthesia Reactions: No Chicken Pox: Yes Cancer: No Subjective Visit Visit for: follow up visit and knee Immunization / Flu Flu Vaccine in the Last 12 Months: No Flu Vaccine Exclusion Criteria: Refused by Patient and No Exclusion Criteria History of Present Illness Chief complaint: 6 WEEK POST OP Date of injury / onset of symptoms: 06/02/2024 Patient is a pleasant 59-year-old female status post left total knee replacement. She is doing well. She has been delayed to start PT because of insurance. She is doing well now Personal History Occupation: unemployed Red flag PMH: none BMI Counceling provided: Yes Pain Pain level (0-10): 4 Pain duration: ON AND OFF Pain location: anterior and posterior Pain quality: sharp Pain timing: increases with activity Associated signs & symptoms: stiffness and none Ambulatory data Ambulatory device: cane and none Walking distance (minutes): 60 Treatments Number of previous injections: 1 Improvement with previous injections: No Number of Physical Therapy sessions: 1 Improvement with PT: No Improvement with NSAIDS: no Review of Systems Review of Systems: All systems negative unless otherwise noted in HPI.
[2024-10-11 14:54] VITALS: BP 174/87; PULSE 82; RESP 19; TEMP 36.9; O2SAT 97; BMI 36.8
== END 2024-10-11 14:56 | disposition home or self-care (01) ==
PROVIDERS: PCP Family Medicine; Referring Provider Family Medicine; Supervising Provider Orthopaedic Surgery Adult Reconstructive Orthopaedic Surgery; Visit Provider Orthopaedic Surgery Adult Reconstructive Orthopaedic Surgery
DX: M17.12 Unilateral primary osteoarthritis, left knee (principal); M25.562 Pain in left knee; Z96.652 Presence of left artificial knee joint; I10 Essential (primary) hypertension
CPT/HCPCS: 73564; 99213; G0463

== ENCOUNTER 2024-11-07 09:27 | Outpatient (AMB) | payer MEDICAID, SELFPAY ==
[2024-11-07 09:48] VITALS: BP 139/79; PULSE 86; RESP 19; TEMP 36.6; O2SAT 99; BMI 37.0
--- NOTE | 2024-11-07 09:48 | ORTHONT_ITS ---
Vital signs 11/07/24 09:48 Height 1.65 m Height Method Stated Weight 100.953 kg Weight Measurement Method Standing Scale BMI 37.0 BP 139/79 H Blood Pressure Source Automatic Cuff Blood Pressure Location Left Upper Arm Position Sitting Respiration 19 Pulse 86 Pulse Source Monitor Temp 97.8 F Temp Source Temporal Artery Scan Pulse Oximetry (%) 99 Oxygen Delivery Method Room Air Med/Allergies Allergies & Medications Allergies No Known Drug Allergies Allergy (Verified 11/07/24 09:49) Medication Reconciliation losartan 100 mg-hydrochlorothiazide 25 mg tablet 1 tab PO DAILY 06/02/24 [Hi story Confirmed 11/07/24] metoprolol succinate 50 mg tablet,extended release 24 hr 50 mg PO DAILY 06/02/24 [History Confirmed 11/07/24] acetaminophen 500 mg tablet (Acetaminophen Extra Strength) 1,000 mg (2 x 500 mg) PO Q6H PRN pain #90 tabs 06/05/24 [Rx Confirmed 11/07/24] aspirin 81 mg tablet,delayed release 81 mg PO BID #60 tabs 06/05/24 [Rx Confirmed 11/07/24] doxycycline hyclate 100 mg tablet 100 mg PO BID #14 tabs 06/05/24 [Rx Confirmed 11/07/24] gabapentin 300 mg capsule 300 mg PO .qhs #30 caps 06/05/24 [Rx Confirmed 11/07/24] sennosides 8.6 mg-docusate sodium 50 mg tablet (Senna-S) 1 tab-cap PO QDAY #30 tabs 06/05/24 [Rx Confirmed 11/07/24] cyclobenzaprine 5 mg tablet 5 mg PO TID PRN muscle spasm #60 tabs 06/22/24 [Rx Confirmed 11/07/24] tramadol 50 mg tablet 50 mg PO Q6H PRN pain #28 tabs 06/22/24 [Rx Confirmed 11/07/24] oxycodone 5 mg tablet 5 mg PO Q6H PRN pain #28 tabs 08/24/24 [Rx Confirmed 11/07/24] hydrocodone 7.5 mg-acetaminophen 325 mg tablet 1 tab PO QHS PRN pain #21 tabs 08/31/24 [Rx Confirmed 11/07/24] Exam Exam Patient is in no acute distress and is cooperative with the examination today. Breathing is nonlabored. Patient has a normal mood and affect. Bilateral extremities were evaluated and demonstrates sensation intact to light touch. Palpable pedal pulses are present. No significant edema is present. Bilateral hips were examined. The patient has no pain with log roll of the hips. Internal rotation to 30 degrees and external rotation to 30 degrees is painless. Negative FADIR. Right knee was examined today. The right knee is in reasonable alignment. Range of motion from 0-120 degrees. Knee is stable to varus and valgus as well as AP translation with <5mm. Patient has a negative Mc[place]. There is no pain with patellofemoral compression and no crepitus noted. The knee is nontender to palpation. Left knee incision is clean dry intact. ROM is 0-100 degrees Left knee x-rays demonstrate a cementless total knee replacement in alignment position with no evidence of loosening. This Is dated 10/11/2024 Assessment and Plan Problem List (1) Arthritis of left knee: Status: Acute Plan: Patient is a 58-year-old female with left knee pain and left knee arthritis. She is doing well status post left total knee replacement. It has been 5 months now from surgery and she is doing well. The patient is requesting more disability b ut appears to be doing well. We discussed with her that she wants more disability at this is now beyond a temporary period and I would recommend that she see her primary care provider as she is better than before so We will see the patient back in approximately 6 months for routine follow-up Office Procedures GNS Level of Care Nursing/Assessment Patient Status: Established Patient Nursing Assessment/Reassesment: Medication Reconciliation, Update PMH in EMR and Vital Signs Coordination of Care: Complex Care and Chronic Disease 1-5, Education Complex Pt/Fam, Consent,records obtained, informed consent, Results/Orders obtained and Staff clarify orders Established Patient Charge Established Patient Point Assignment: 95 Established Patient Point Charge: EP Level 3 (80-115) Questionairres Past Medical History Past Medical History Have you ever been diagnosed with any of the following: Neurological Problems Seizures: No Cardiology Problems Congestive Heart Failure: No Hypertension: Yes Varicose Veins: Yes Respiratory Problems Chronic Obstructive Pulmonary Disease (COPD): No Asthma: Yes Bronchitis: Yes Smoking: No Smoking Cessation Counseling: No Smoking Exposure: No Stomache/Intestinal Problems Hepatitis: No Obesity: Yes Genital/Urinary Problems Renal Disease: No Reproductive Problems Previous Pregnancies: Yes (4) Musculoskeletal Problems Arthritis: Yes Endocrine Problems Diabetes Mellitus Type 1: No Diabetes Mellitus Type 2: No Blood Problems Anemia: Yes Other Problems Hospitalization: Yes (surgery) Shingles: No Blood Transfusions: No Blood Transfusion Reaction: No Anesthesia Reactions: No Chicken Pox: Yes Cancer: No Subjective Visit Visit for: follow up visit and knee Immunization / Flu Flu Vaccine in the Last 12 Months: No Flu Vaccine Exclusion Criteria: Refused by Patient and No Exclusion Criteria History of Present Illness Chief complaint: 6 WEEK POST OP Date of injury / onset of symptoms: 06/02/2024 Patient is a pleasant 59-year-old female status post left total knee replacement. She is doing well. She has been delayed to start PT because of insurance. She is doing well now Personal History Occupation: unemployed Red flag PMH: none BMI Counceling provided: Yes Pain Pain level (0-10): 4 Pain duration: ON AND OFF Pain location: anterior and posterior Pain quality: sharp Pain timing: increases with activity Associated signs & symptoms: stiffness and none Ambulatory data Ambulatory device: cane and none Walking distance (minutes): 60 Treatments Number of previous injections: 1 Improvement with previous injections: No Number of Physical Therapy sessions: 1 Improvement with PT: No Improvement with NSAIDS: no Review of Systems Review of Systems: All systems negative unless otherwise noted in HPI.
--- NOTE | 2024-11-07 09:48 | ORTHONT_ITS ---
Vital signs 11/07/24 09:48 Height 1.65 m Height Method Stated Weight 100.953 kg Weight Measurement Method Standing Scale BMI 37.0 BP 139/79 H Blood Pressure Source Automatic Cuff Blood Pressure Location Left Upper Arm Position Sitting Respiration 19 Pulse 86 Pulse Source Monitor Temp 97.8 F Temp Source Temporal Artery Scan Pulse Oximetry (%) 99 Oxygen Delivery Method Room Air Med/Allergies Allergies & Medications Allergies No Known Drug Allergies Allergy (Verified 11/07/24 09:49) Medication Reconciliation losartan 100 mg-hydrochlorothiazide 25 mg tablet 1 tab PO DAILY 06/02/24 [Hi story Confirmed 11/07/24] metoprolol succinate 50 mg tablet,extended release 24 hr 50 mg PO DAILY 06/02/24 [History Confirmed 11/07/24] acetaminophen 500 mg tablet (Acetaminophen Extra Strength) 1,000 mg (2 x 500 mg) PO Q6H PRN pain #90 tabs 06/05/24 [Rx Confirmed 11/07/24] aspirin 81 mg tablet,delayed release 81 mg PO BID #60 tabs 06/05/24 [Rx Confirmed 11/07/24] doxycycline hyclate 100 mg tablet 100 mg PO BID #14 tabs 06/05/24 [Rx Confirmed 11/07/24] gabapentin 300 mg capsule 300 mg PO .qhs #30 caps 06/05/24 [Rx Confirmed 11/07/24] sennosides 8.6 mg-docusate sodium 50 mg tablet (Senna-S) 1 tab-cap PO QDAY #30 tabs 06/05/24 [Rx Confirmed 11/07/24] cyclobenzaprine 5 mg tablet 5 mg PO TID PRN muscle spasm #60 tabs 06/22/24 [Rx Confirmed 11/07/24] tramadol 50 mg tablet 50 mg PO Q6H PRN pain #28 tabs 06/22/24 [Rx Confirmed 11/07/24] oxycodone 5 mg tablet 5 mg PO Q6H PRN pain #28 tabs 08/24/24 [Rx Confirmed 11/07/24] hydrocodone 7.5 mg-acetaminophen 325 mg tablet 1 tab PO QHS PRN pain #21 tabs 08/31/24 [Rx Confirmed 11/07/24] Office Procedures GNS Level of Care Nursing/Assessment Patient Status: Established Patient Nursing Assessment/Reassesment: Medication Reconciliation, Update PMH in EMR and Vital Signs Coordination of Care: Complex Care and Chronic Disease 1-5, Education Complex Pt/Fam, Consent,records obtained, informed consent, Results/Orders obtained and Staff clarify orders Established Patient Charge Established Patient Point Assignment: 95 Established Patient Point Charge: EP Level 3 (80-115) MA Intake Visit Data Collection New Patient or Established: Established Patient (seen at [facility] within 3 years) Reason for Visit:: REQ DISABILITY Seen by Clinical Staff ONLY (RN/MA): No PCP or OBGYN visit in last 3 months: Yes Hx Now: No Do You Feel Safe at Home: Yes Authorities Contacted: N/A Questionairres Past Medical History Past Medical History Have you ever been diagnosed with any of the following: Neurological Problems Seizures: No Cardiology Problems Congestive Heart Failure: No Hypertension: Yes Varicose Veins: Yes Respiratory Problems Chronic Obstructive Pulmonary Disease (COPD): No Asthma: Yes Bronchitis: Yes Smoking: No Smoking Cessation Counseling: No Smoking Exposure: No Stomache/Intestinal Problems Hepatitis: No Obesity: Yes Genital/Urinary Problems Renal Disease: No Reproductive Problems Previous Pregnancies: Yes (4) Musculoskeletal Problems Arthritis: Yes Endocrine Problems Diabetes Mellitus Type 1: No Diabetes Mellitus Type 2: No Blood Problems Anemia: Yes Other Problems Hospitalization: Yes (surgery) Shingles: No Blood Transfusions: No Blood Transfusion Reaction: No Anesthesia Reactions: No Chicken Pox: Yes Cancer: No Subjective Visit Visit for: follow up visit and knee Immunization / Flu Flu Vaccine in the Last 12 Months: No Flu Vaccine Exclusion Criteria: Refused by Patient and No Exclusion Criteria History of Present Illness Chief complaint: 6 WEEK POST OP Date of injury / onset of symptoms: 06/02/2024 Personal History Occupation: unemployed Red flag PMH: none BMI Counceling provided: Yes Pain Pain level (0-10): 6 Pain duration: ON AND OFF Pain location: anterior and posterior Pain quality: sharp Pain timing: increases with activity Associated signs & symptoms: stiffness and none Ambulatory data Ambulatory device: cane and none Walking distance (minutes): 60 Treatments Number of previous injections: 1 Improvement with previous injections: No Number of Physical Therapy sessions: 1 Improvement with PT: No Improvement with NSAIDS: no Review of Systems Review of Systems: All systems negative unless otherwise noted in HPI.
== END 2024-11-07 09:59 | disposition home or self-care (01) ==
PROVIDERS: PCP Family Medicine; Referring Provider Family Medicine; Supervising Provider Orthopaedic Surgery Adult Reconstructive Orthopaedic Surgery; Visit Provider Orthopaedic Surgery Adult Reconstructive Orthopaedic Surgery
DX: M17.12 Unilateral primary osteoarthritis, left knee (principal); Z96.652 Presence of left artificial knee joint; M25.562 Pain in left knee; I10 Essential (primary) hypertension
CPT/HCPCS: 99213; G0463